=== PATIENT | male | born 1970 | race Caucasian/White ===

== ENCOUNTER 2016-12-22 07:16 | Day surgery (SDC) | payer OTHER ==
[~2016-12-22 07:16] MED LIST: CRESTOR5 MG; ESCITALOPRAM OX10 M1 PO; FISH OIL 11000 MG/CA PO; FISH OIL1 CAP; HUMALOG MI100 UNIT/4 SQ; HUMALOG MI100 UNITS1 SC; HUMULIN R100 U/ML; LANTUS100 U/ML; LEVAQUIN750 M1 PO; LIPITOR20 M1 PO; PROAIR HFA8.5 GM; PROVENTIL HFA6.7 G1 IH; TESTOSTERO200 MG/1 M IM; VIAGRA100 M1 PO; VITAMIN D32000 UNI3 PO; WELLBUTRIN SR150 M2 PO; ZESTRIL30 M1 PO; ZOCOR20 M1 PO
== END 2016-12-22 12:45 ==
LOC: SRG 07:16 → SHSB 07:19 → ORE 08:58 → PACU 09:29 → SHSB 10:50
PROC: 097F4ZZ Dilation of Right Eustachian Tube, Percutaneous Endoscopic Approach (ICD-10-PCS; principal; 2016-12-22)
DX: H69.81 Other specified disorders of Eustachian tube, right ear (principal); H65.21 Chronic serous otitis media, right ear; I25.10 Atherosclerotic heart disease of native coronary artery without angina pectoris; I10 Essential (primary) hypertension; E66.9 Obesity, unspecified; E78.5 Hyperlipidemia, unspecified; E11.9 Type 2 diabetes mellitus without complications; F41.9 Anxiety disorder, unspecified; F32.9 Major depressive disorder, single episode, unspecified; J45.909 Unspecified asthma, uncomplicated; E29.1 Testicular hypofunction; D58.2 Other hemoglobinopathies; G47.30 Sleep apnea, unspecified; Z68.32 Body mass index [BMI] 32.0-32.9, adult; Z79.4 Long term (current) use of insulin; Z79.899 Other long term (current) drug therapy; Z88.1 Allergy status to other antibiotic agents; Z87.891 Personal history of nicotine dependence; Z87.01 Personal history of pneumonia (recurrent); Z98.890 Other specified postprocedural states
CPT/HCPCS: J0171; J3010